=== PATIENT | female | born 1980 | race Two or more races ===

== ENCOUNTER 2016-11-20 17:41 | Emergency (ER) | payer OTHER ==
[~2016-11-20] VITALS: Ht 160 cm; Wt 47.6 kg
[2016-11-20 17:43] VITALS: BP 132/72
[2016-11-20 18:20] LABS: VAL ACID 51 mcg/mL (50-100)
--- NOTE | 2016-11-20 18:24 | PHYS DOC ---
General Chief Complaint: SEIZURE Stated Complaint: SEIZURE Time Seen by MD: 18:02 Source: patient, family Problems: History of Present Illness Initial Comments Patient here because of possible seizure. Patient says she's had a seizure disorder since 5 years of age. She apparently fell off a dresser [facility] where she lived and has had seizures since. She says she has pain all seizure, grand mall seizures, cluster seizures. She says she actually has not had a seizure in the last 5 years and has been fairly well controlled with medication. She says today she laid down to take a nap and she felt some tingling in her fingers and toes. She was almost asleep when she felt a single jerking motion of the left upper extremity. She was able to get a little bit of sleep, but then woke up when she had 1-2 jerking motions of left upper and lower extremity, lasting about 10 seconds total. She was awake during the episode. She had no incontinence. There is no generalized tonic-clonic activity. She says that sometimes she has seizures like this in the past. 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 She 's had no fever chills URI symptoms or cough. There's no chest pain or shortness of breath. No vision or speech change. There is no neck or back pain. She had some nausea last several days but not today. She's been able to eat and drink today without difficulty. There is no abdominal pain. There is no change in bowel or bladder habits. Her last period was about 10 days ago. She is on control implants. She denies any other acute focal extremity or neurologic complaints. Patient's done nothing for this prior to arrival in the ER and no fractures noted increase or decrease her symptoms. Patient's past medical history is remarkable for seizure disorder. She was well-controlled on felbamate Depakote ER until she got last year, which time she was switched to Keppra and Depakote which she is still on now. She says she had a neurology appointment several weeks ago and they did an EKG that showed some unusual activity. She try to contact her physician today to see if she can get back on her previous regnancy medications which seem to work for her. She is a nonsmoker and a rare social user of ethanol. Allergies: Coded Allergies: No Known Drug Allergies (Unverified , 11/20/16) Past Medical History Medical History: seizure Social History Smoker: non-smoker Alcohol: rarely Review of Systems All Other Systems: Reviewed and Negative Physical Exam General Appearance: WD/WN, no apparent distress Eyes: bilateral eye EOMI, bilateral eye PERRL, bilateral eye normal inspection Ear, Nose, Throat: normal ENT inspection, normal pharynx Neck: full range of motion, supple, normal inspection Respiratory: lungs clear, normal breath sounds, no respiratory distress Cardiovascular: regular rate, rhythm, no edema Gastrointestinal: non tender, soft Back: no CVA tenderness, no vertebral tenderness Extremities: non-tender, normal inspection, no pedal edema 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 Vitals are as noted. Pertinent findings on physical exam shows a head atraumatic normocephalic. Ears and throat are clear. Pupils are equal reactive light accommodation. Extra ocular movements are intact. Neck is supple without adenopathy or JVD. There's no meningeal signs. Chest is clear and cardiovascular exams unremarkable. The abdomen is soft and nontender. Back has no CVA tenderness. Extremity show no rashes cyanosis or edema. Neurologic exam shows her to be awake alert oriented 4. Cranial nerves II through XII grossly intact. Strength 5 over 5 equal all sites tested. There are no gross sensory deficits. She stands without difficulty and Romberg is negative. Remainder of physical exam is clinically unremarkable. Orders, Labs, Meds Old charts note no prior ER visits within the current system. Labs today are clinically unremarkable. Patient has a negative test. Depakote level is 51. 1900 Patient resting comfortably in the ER. She's had no further seizure-like or myoclonic activity. I discussed with the patient is uncertain cause of today' s episode. He does sound like she may have had some possible myoclonic jerks, but it's hard to say that this is distinctly seizure activity. Her Depakote level is very low borderline within therapeutic range, and she may require some dosage adjustment. In addition, as noted, she expressed interest in going back to the doses of medicine that she had been on before , she felt that managed her symptoms better. She says that since she's been on the Keppra and Depakote red than the felbamate Depakote ER she always feels like she might have a seizure and makes her anxious. I was able to discuss the case with patient's own urologist, Dr. Escobedo, who kindly returned the phone page. He suggested this is probably best handled in the office, as he doesn't have records available to make a final decision regarding medication doses or changes at this time. He'll be happy to see the patient the office tomorrow. I discussed with the patient and her my conversation with Dr. Escobedo. They do voice understanding of the need to call his office tomorrow to make an appointment to be seen tomorrow. She is encouraged to continue her current medications and to continue taking her doses. She actually has plenty of her medications and has not recently run out or skipped any doses. He also voices understanding of the need to return the ER sooner as needed if worsen anyway. She looks well, in no acute discomfort distress, okay for discharge home at this time. STEPHANI KNOTT MD Nov 20, 2016 18:24
[2016-11-20 18:33] LABS: BASO % 1 % (0-3); EOS # 0.1 x10^3/uL (0.0-0.7); EOS % 2 % (0-3); HEMATOCRIT 36.2 % (36.0-47.0); HEMOGLOBIN 11.6 g/dL (12.0-15.5); LYMPH # 1.6 x10^3/uL (1.0-4.8); LYMPH % 23 % (24-48); MEAN CORPUSCULAR HEMOGLOBIN 26 pg (25-35); MEAN CORPUSCULAR HGB CONC 32 g/dL (31-37); MEAN CORPUSCULAR VOLUME 79 fL (79-100); MONO # 0.6 x10^3/uL (0.0-1.1); MONO % 9 % (0-9); NEUT # 4.6 x10^3uL (1.8-7.7); NEUT % 66 % (31-73); PLATELET COUNT 230 x10^3/uL (140-400); RED BLOOD COUNT 4.56 x10^6/uL (3.50-5.40); RED CELL DISTRIBUTION WIDTH 17.5 % (11.5-14.5)
[2016-11-20 18:41] LABS: ALBUMIN 3.6 g/dL (3.4-5.0); ALBUMIN/GLOBULIN RATIO 0.9 (1.0-1.7); CALCIUM 9.3 mg/dL (8.5-10.1); CREATININE 0.6 mg/dL (0.6-1.0); GFR 114.4; POTASSIUM 3.6 mmol/L (3.5-5.1); TOTAL BILIRUBIN 0.3 mg/dL (0.2-1.0); TOTAL PROTEIN 7.7 g/dL (6.4-8.2)
[2016-11-20 19:10] LABS: BILIRUBIN,URINE NEG (NEG); CLARITY,URINE CLEAR; COLOR,URINE STRAW; GLUCOSE,URINE NEG (NEG); NITRITE,URINE NEG (NEG); UROBILINOGEN,URINE 0.2 mg/dL (0.2 mg/dL)
[2016-11-20 19:11] LABS: RBC,URINE RARE /HPF (0-2)
[2016-11-20 19:12] LABS: BACTERIA,URINE FEW /HPF (0-FEW); SQUAMOUS EPITHELIAL CELL,UR MANY /LPF; WBC,URINE OCC /HPF (0-4)
== END 2016-11-20 19:17 | disposition home or self-care (01) ==
LOC: ER 17:41
DX: G40.909 Epilepsy, unspecified, not intractable, without status epilepticus (principal); R20.2 Paresthesia of skin
CPT/HCPCS: 36415; 80053; 80164; 81001; 81025; 84146; 84703; 85027; 99284